=== PATIENT | female | born 2005 | race African-American/Black ===

== ENCOUNTER 2024-11-30 06:36 | Emergency (ER) | payer OTHER ==
[~2024-11-30] VITALS: Ht 157.5 cm; Wt 52.3 kg
[2024-11-30] MEDS ORDERED: ALBU2.5V10 INH (06:47)
[2024-11-30] MEDS ORDERED: MAGN400T2 PO (06:47)
[2024-11-30 09:15] VITALS: BP 108/58; TEMP 97.4; O2SAT 100
== END 2024-11-30 09:16 | disposition home or self-care (01) ==
LOC: M ED 06:36
DX: R05.9 Cough, unspecified (principal); R51.9 Headache, unspecified; J45.909 Unspecified asthma, uncomplicated; Z79.52 Long term (current) use of systemic steroids; Z79.899 Other long term (current) drug therapy

== ENCOUNTER → 2025-01-16 | Outpatient (CLI) | payer OTHER ==
[~2025-01-16] MED LIST: ALBU2.5V10 INH; MAGN400T2 PO
== END ==
LOC: M CARPUL 14:48
PROVIDERS: ATTEND Student in an Organized Health Care Education/Training Program
DX: J45.909 Unspecified asthma, uncomplicated (principal)